=== PATIENT | female | born 1995 | race Two or more races ===

== ENCOUNTER → 2020-12-24 13:52 | Outpatient (CLI) | payer OTHER | END | disposition home or self-care (01) | LOC: PPH VACUNA 13:52 | DX: Z23 Encounter for immunization (principal) ==

== ENCOUNTER 2021-07-17 13:40 | Outpatient (CLI) | payer OTHER | END 2021-07-17 14:00 | disposition home or self-care (01) | LOC: PPH VACUNA 13:40 | PROVIDERS: ATTEND Emergency Medicine Pediatric Emergency Medicine | DX: Z23 Encounter for immunization (principal) ==

== ENCOUNTER 2021-09-08 11:39 | Emergency (ER) | payer OTHER ==
[~2021-09-08] VITALS: Ht 157.5 cm; Wt 44.0 kg
[2021-09-08] MEDS ORDERED: ALKINDI SPRINK0.5 MG PO (12:31)
== END 2021-09-08 15:16 | disposition home or self-care (01) ==
LOC: ER 11:39
DX: O26.891 Other specified pregnancy related conditions, first trimester (principal); R10.2 Pelvic and perineal pain; Z34.01 Encounter for supervision of normal first pregnancy, first trimester

== ENCOUNTER 2024-08-26 08:27 | Emergency (ER) | payer OTHER ==
[~2024-08-26] VITALS: Ht 157.5 cm; Wt 51.7 kg
[~2024-08-26 08:27] MED LIST: ALKINDI SPRINK0.5 MG PO
[2024-08-26 11:12] LABS: URINE APPEARANCE Cloudy; URINE BILIRRUBIN Negative (NEGATIVE); URINE BLOOD Negative; URINE COLOR Yellow; URINE GLUCOSE Negative (NEGATIVE); URINE KETONE Negative (NEGATIVE); URINE LEUKOCYTE Small; URINE NITRATE Negative; URINE PROTEIN Negative (NEGATIVE)
[2024-08-26 11:18] LABS: URINE BACTERIA 1247.1 uL (0.0-1933); URINE RBC 27.8 uL (0.0-20.8)
[2024-08-26 11:22] LABS: HEMATOCRIT 38.6 % (36.0-45.00); HEMOGLOBIN 13.2 g/dL (12.0-15.00); MEAN CELL VOLUME 93.7 fL (80.00-100.00); MEAN CORPUSCULAR HGB CONC 34.1 g/dl (32.0-36.0); PLATELET COUNT 172 K/uL (150-450); RED BLOOD COUNT 4.12 M/uL (4.00-6.00)
[2024-08-26 11:32] LABS: ERYTHROCYTE SEDIMENTATION RATE 2 mm/hr
[2024-08-26 11:44] LABS: CALCIUM 8.5 mg/dL (8.5-10.1); CREATININE SERUM 0.77 mg/dL (0.55-1.02); GFR 89.92; POTASSIUM 3.57 mEq/L (3.5-5.1)
[2024-08-26] MEDS ORDERED: KETOROLAC TROMETHAMINE 60 MG VIAL IM ONE (13:00)
[2024-08-26] MEDS ORDERED: KETOROLAC TROMETHAMINE 30 MG VIAL ONE (13:28)
== END 2024-08-26 14:16 ==
LOC: ER 08:29
PROVIDERS: General Practice
DX: R51.9 Headache, unspecified (principal); E27.8 Other specified disorders of adrenal gland
CPT/HCPCS: 36415; 96372; 99282; J1885

== ENCOUNTER 2024-12-11 13:18 | Outpatient (CLI) | payer OTHER | END 2024-12-19 14:23 | disposition home or self-care (01) | LOC: SONOGRAMA 13:18 | DX: N83.292 Other ovarian cyst, left side (principal) ==